=== PATIENT | male | born 1985 | race Caucasian/White ===

== ENCOUNTER 2019-10-20 11:24 | Emergency (ER) | payer BC ==
[~2019-10-20] VITALS: Ht 182.9 cm; Wt 87.1 kg
== END 2019-10-20 15:47 | disposition home or self-care (01) ==
LOC: ER 11:24
DX: T63.621A Toxic effect of contact with other jellyfish, accidental (unintentional), initial encounter (principal); Y92.832 Beach as the place of occurrence of the external cause